=== PATIENT | female | born 1990 | race Caucasian/White ===

== ENCOUNTER 2017-06-16 09:17 | Emergency (ER) | payer MEDICAID ==
[~2017-06-16] VITALS: Ht 170.2 cm; Wt 58.3 kg
[~2017-06-16 09:17] MED LIST: ARIP5TAB8 PO; MIRT15 PO
[2017-06-16 11:09] VITALS: BP 121/69
== END 2017-06-16 11:10 | disposition home or self-care (01) ==
LOC: EMS 09:20
DX: Z76.0 Encounter for issue of repeat prescription (principal); F41.9 Anxiety disorder, unspecified; F32.9 Major depressive disorder, single episode, unspecified; F12.10 Cannabis abuse, uncomplicated; F15.10 Other stimulant abuse, uncomplicated
CPT/HCPCS: 99283